=== PATIENT | female | born 1955 | race Caucasian/White ===

== ENCOUNTER 2019-04-18 14:35 | Emergency (ER) | payer OTHER ==
[~2019-04-18] VITALS: Ht 165.1 cm; Wt 69.4 kg
[~2019-04-18 14:35] MED LIST: ALPRAZOLAM 0.50.5 M1 PO; IBUPROFEN 600600 M1 PO; NORCO 5-325 TA1 EACH PO
[2019-04-18] MEDS ORDERED: NAPROSYN500 MG PO (15:33)
[2019-04-18] MEDS ORDERED: ROBAXIN 750 MG750 MG PO (15:33)
[2019-04-18 15:46] VITALS: BP 145/105
== END 2019-04-18 16:21 | disposition home or self-care (01) ==
LOC: ER 14:35
DX: S16.1XXA Strain of muscle, fascia and tendon at neck level, initial encounter (principal); S09.90XA Unspecified injury of head, initial encounter; I10 Essential (primary) hypertension; E78.00 Pure hypercholesterolemia, unspecified; Z96.651 Presence of right artificial knee joint; Z86.718 Personal history of other venous thrombosis and embolism; Z91.040 Latex allergy status; Z88.0 Allergy status to penicillin; V89.0XXA Person injured in unspecified motor-vehicle accident, nontraffic, initial encounter; Y93.89 Activity, other specified; Y92.481 Parking lot as the place of occurrence of the external cause; Y99.8 Other external cause status